=== PATIENT | male | born 1995 | race African-American/Black ===

== ENCOUNTER 2023-09-10 15:03 | Emergency (ER) | payer OTHER ==
--- NOTE | 2023-09-10 17:28 | ED Physician Documentation ---
History of Present Illness - Stated complaint Stated Complaint: SKIN PROBLEM? - Chief complaint Chief Complaint: General - History obtained from History obtained from: Patient - Additonal information Additional information: He has a mildly painful penile rash that has been going on for about a week. Says he had a similar episode previously that was diagnosed as a fungal infection which improved with topical treatment. He is in a monogamous relationship and really not concerned regarding STDs per se. PD PAST MEDICAL HISTORY - Past Medical History Past Medical History: No - Past Surgical History Past Surgical History: Yes Ortho: Other - Present Medications Home Medications: Ambulatory Orders Medication Instructions Recorded Confirmed Acetaminophen/Cod 300/30 [Tylenol 1 each PO Q4-6H PRN #15 tablet 01/28/22 #3] Tolnaftate 1 gm TP BID #60 gm 09/10/23 - Allergies Allergies/Adverse Reactions: Allergies Allergy/AdvReac Type Severity Reaction Status Date / Time No Known Drug Allergies Allergy Verified 09/10/23 15:11 - Social History Does the pt smoke?: No Smoking Status: Never smoker PD ED PE NORMAL - Vitals Vital signs reviewed: Yes - General General: Alert and oriented X 3, No acute distress - Derm Derm: Other (There is a rash that looks probably fungal to the glans and distal shaft of the penis. It is bilateral.) - Neuro Neuro: Alert and oriented X 3, Normal speech Results - Vitals Vitals: Vital Signs - 24 hr 09/10/23 15:11 Temperature 36.2 C L Heart Rate 90 Respiratory 16 Rate Blood Pressure 129/88 H O2 Saturation 99 Oxygen O2 Source Room air Departure - Departure Disposition: 01 Home, Self Care Clinical Impression: Penile rash Condition: Good Record reviewed to determine appropriate education?: Yes Instructions: ED [facility] Infec Fungal Prescriptions: Tolnaftate 1 gm TP BID #60 gm Comments: I sent a prescription electronically to [facility] in [place]. This could be something called lichen sclerosis or a fungal infection. [place]. I did send a swab for herpes but it really does not look like that, your flight surgeon can look up the results or you can look it up in the patient portal at the hospital website. Forms: PCP List
[2023-09-10 17:39] VITALS: BP 124/86; O2SAT 100
[2023-09-14 13:11] LABS: HSV-1 DNA Negative (Negative); HSV-2 DNA Negative (Negative)
== END 2023-09-10 17:30 | disposition home or self-care (01) ==
LOC: ED 15:03
DX: R21 Rash and other nonspecific skin eruption (principal)
CPT/HCPCS: 87529; 99283